=== PATIENT | male | born 1955 | race Caucasian/White ===

== ENCOUNTER 2017-06-09 03:39 | Emergency (ER) | payer OTHER ==
--- NOTE | ~2017-06-09 | CR206 ---
[facility] A Service of [facility] & [facility] RADIOLOGY TEXT RESULTS PATIENT: DELBERT HOLMAN LOCATION: [facility] : 55 UNIT #: [id number] AGE: [address]: Dean Pinto MD SEX: M ORDER DR: [id number] [facility] [address] [place], [place] [address] [id number] E MR#: [id number] Acc #: [id number] NAME: DELBERT HOLMAN : 1955 SEX: M STUDY DATE/TIME: UNIT: [facility] ROOM: STUDY DESCRIPTION: CR Pelvis 1 or 2 Views Attending Physician: Dean Pinto Ordering Physician: Eric Pinto M.D. Primary Care Physician: Primary Care Physician No MEDICAL IMAGING REPORT This report is preliminary unless electronic signature is present EXAM Pelvis, 06/09/2017 at 05:25 INDICATIONS Rectal pain since 02:30 this morning. Sex toy stuck in rectum. Foreign body. FINDINGS Supine views of the abdomen and pelvis were obtained. The visualized bowel gas pattern is normal. Numerous calcifications in the pelvis are compatible with phleboliths. No radiopaque foreign body is seen. IMPRESSION No radiopaque foreign body identified. Dictated by... Josep Allen Jr., M.D. THIS IS AN ELECTRONICALLY VERIFIED REPORT Josep Allen Jr., M.D. at 06/10/2017 3:15 AM TOMMY/qi TD: 06/09/2017 22:22 JOB #: [id number] MEDICAL IMAGING REPORT Page 1 of 1 COPY
== END 2017-06-09 06:11 | disposition home or self-care (01) ==
LOC: CED 03:39
DX: Z00.01 Encounter for general adult medical examination with abnormal findings (principal); K58.9 Irritable bowel syndrome, unspecified; F17.210 Nicotine dependence, cigarettes, uncomplicated; Z90.49 Acquired absence of other specified parts of digestive tract; Z88.2 Allergy status to sulfonamides; Z88.5 Allergy status to narcotic agent
CPT/HCPCS: 72170; 99284